=== PATIENT | female | born 1940 ===

== ENCOUNTER 2022-03-18 05:57 | Inpatient (IN) | payer OTHER | END 2022-03-20 22:40 | DRG 470 | LOC: O/R 05:57 → SURG 13:07 → SURH 16:46 | PROVIDERS: ADMIT Orthopaedic Surgery | PROC: 0SRC0J9 Replacement of Right Knee Joint with Synthetic Substitute, Cemented, Open Approach (ICD-10-PCS; principal; 2022-03-18) | DX: M17.11 Unilateral primary osteoarthritis, right knee (principal); D62 Acute posthemorrhagic anemia; M22.11 Recurrent subluxation of patella, right knee; M81.0 Age-related osteoporosis without current pathological fracture; I10 Essential (primary) hypertension; E11.9 Type 2 diabetes mellitus without complications ==